=== PATIENT | male | born 1970 | race Caucasian/White ===

== ENCOUNTER 2017-03-19 11:47 | Emergency (ER) | payer SELFPAY ==
[2017-03-19] MEDS ORDERED: METHYLPREDNISOLONE INJ 125 MG/2 ML SDV IM ONE (12:28)
--- NOTE | 2017-03-19 12:33 | ER Document Report ---
HPI - HPI Pain Level: Denies Notes: Patient is a 46-year-old male who presents the ED complaining of vesicular pruritic 1-2 days. Patient states that he has been working outside in his rash to his anterior posterior trunk and bilateral upper extremities and right lower extremity around a lot of poisonous plants and believes he was exposed. Patient has been using [id number] meds with minimal relief. Patient states that he has had this in the past. He denies any other significant medical history, other than HTN, or known allergies. He has no pain or purulent discharge. He has not noticed any red streaking. Denies any headache , fever, URI, sore throat, chest pain, palpitations, syncope, cough, shortness of breath, wheeze, dyspnea, abdominal pain, nausea/vomiting/diarrhea. Denies recent illness or insect bite. No new foods or medications. patient denies any trouble swallowing or breathing. He denies any drooling. Denies any swelling of his mouth, lips, tongue, throat. Pt is supposed to be on Amlodipine 5mg daily but has been out for 2 weeks. - ROS Notes: REVIEW OF SYSTEMS: CONSTITUTIONAL : Denies fever, chills, or sweats. Denies recent illness. EENT: Denies eye, ear, throat, or mouth pain or symptoms. Denies nasal or sinus congestion or discharge. Denies throat, tongue, or mouth swelling or difficulty swallowing. CARDIOVASCULAR: Denies chest pain. Denies palpitations or racing or irregular heart beat. Denies ankle edema. RESPIRATORY: Denies cough, cold, or chest congestion. Denies shortness of breath, difficulty breathing, or wheezing. GASTROINTESTINAL: Denies abdominal pain or distention. Denies nausea, vomiting , or diarrhea. Denies blood in vomitus, stools, or per rectum. Denies black, tarry stools. Denies constipation. GENITOURINARY: Denies difficulty urinating, painful urination, burning, frequency, blood in urine, or discharge. MUSCULOSKELETAL: Denies back or neck pain or stiffness. Denies joint pain or swelling. SKIN: see hpi. NEUROLOGICAL: Denies confusion or altered mental status. Denies passing out or loss of consciousness. Denies dizziness or lightheadedness. Denies headache. Denies weakness or paralysis or loss of use of either side. Denies problems with gait or speech. Denies sensory loss, numbness, or tingling. ALL OTHER SYSTEMS REVIEWED AND NEGATIVE. Dictation was performed using [employer] voice recognition software - CARDIOVASCULAR Cardiovascular: DENIES: Chest pain - DERM Skin Color: Normal Past Medical History - Social History Smoking Status: Unknown if Ever Smoked Chew tobacco use (# tins/day): No Frequency of alcohol use: None Drug Abuse: None Family History: Reviewed & Not Pertinent Patient has suicidal ideation: No - Past Medical History Cardiac Medical History: Reports: Hx Hypertension Renal/ Medical History: Denies: Hx Peritoneal Dialysis Surgical Hx: Negative - Immunizations Hx Diphtheria, Pertussis, Tetanus Vaccination: Yes Vertical Provider Document - CONSTITUTIONAL Agree With Documented VS: Yes Notes: PHYSICAL EXAMINATION: GENERAL: Well-appearing, well-nourished and in no acute distress. HEAD: Atraumatic, normocephalic. EYES: Pupils equal round and reactive to light, extraocular movements intact, sclera anicteric, conjunctiva are normal. ENT: Nares patent and without discharge. oropharynx clear without exudates. No tonsilar hypertrophy or erythema. Moist mucous membranes. No sinus tenderness. No obvious angioedema noted. No resp compromise. NECK: Normal range of motion, supple without lymphadenopathy LUNGS: Breath sounds clear to auscultation bilaterally and equal. No wheezes rales or rhonchi. HEART: Regular rate and rhythm without murmurs, rubs, gallops. Musculoskeletal: Ext b/l: FROM to passive/active. Strength 5+/5. Extremities: No cyanosis, clubbing, or edema b/l. Peripheral pulses 2+. Capillary refill less than 3 seconds. NEUROLOGICAL: Cranial nerves grossly intact. Normal speech, normal gait. Normal sensory, motor exams PSYCH: Normal mood, normal affect. SKIN: maculopapular erythemic rash with vesicles noted. No abscess, purulent discharge, or streaks. Non-tender. No induration. - INFECTION CONTROL TRAVEL OUTSIDE OF THE [place] IN LAST 30 DAYS: No - RESPIRATORY O2 Sat by Pulse Oximetry: 99 Course - Re-evaluation Re-evalutation: 03/19/17 12:50 Patient is an afebrile, well-hydrated, 46-year-old male who presents to the ED with suspected contact irritant dermatitis & HTN. Vitals are stable. PE otherwise unremarkable. Low suspicion/risk for any necrotizing fasciitis, sepsis, meningitis, or other systemic emergent condition at this time. Patient is aware that his condition can change from initial presentation and he needs to monitor symptoms closely and seek medical attention if any acute changes. Solu-Medrol 125 mg given IM today. I will send him home with a Medrol Dosepak/ steroid taper as well as triamcinolone cream. I will also send him home with his amlodipine for 10 days, but is to get an appointment/refill with his PCM prior to the end of that script. Conservative measures otherwise for symptoms. Recheck with her PCM this week. Return to the ED with any worsening/ concerning symptoms otherwise as reviewed in discharge. Patient is in agreement. BP currently 149/114. asymptomatic otherwise. - Vital Signs Vital signs: Temp Pulse Resp BP Pulse Ox 98.0 F 117 H 16 195/109 H 99 03/19/17 11:59 03/19/17 11:59 03/19/17 11:59 03/19/17 11:59 03/19/17 11:59 Discharge - Discharge Clinical Impression: Contact dermatitis Qualifiers: Contact dermatitis type: irritant Contact dermatitis trigger: non-food plants Qualified Code(s): L24.7 - Irritant contact dermatitis due to plants, except food Condition: Stable Disposition: HOME, SELF-CARE Instructions: Contact Dermatitis (OM), Poison Angelica ([facility]) Additional Instructions: Keep the skin clean May wash with a mild soap and water Take medication as directed Use cream as directed Benadryl or other antihistamine as needed, but watch for drowsiness Recheck with your PCM this week You have high blood pressure and need to get that checked out further as you are at higher risk for stroke and heart attack as well as vascular disease. Return to the ED with any worsening symptoms and/or development of fever, headache, swelling of lips/tongue/throat, chest pain, palpitations, syncope, shortness of breath, trouble breathing, abdominal pain, n/v/d, blood in stool/ urine, loss of control of bowel/bladder, muscle weakness/paralysis, abscess, redness, discharge, or other worsening symptoms that are concerning to you. Prescriptions: Amlodipine Besylate 5 mg PO DAILY #10 tab Prednisone [Deltasone 10 mg Tablet] 10 mg PO ASDIR PRN #21 tablet PRN Reason: Triamcinolone Acetonide 1 - 2 gm TP BID #15 cream.gm. Forms: Elevated Blood Pressure Referrals: [facility] [Provider Group] - Follow up in 1 week
[2017-03-19 13:23] VITALS: BP 182/91
== END 2017-03-19 13:07 | disposition home or self-care (01) ==
LOC: ER 11:47
DX: L24.7 Irritant contact dermatitis due to plants, except food (principal); I10 Essential (primary) hypertension
CPT/HCPCS: 99282; 96372; J2930